=== PATIENT | female | born 1995 | race Caucasian/White ===

== ENCOUNTER 2017-04-20 18:07 | Observation (INO) ==
[2017-04-20] MEDS ORDERED: Ondansetron 4 MG/2 ML VIAL IVP ONE (18:45)
[2017-04-20] MEDS ORDERED: Dicyclomine 20 MG/2 ML AMPUL IM ONE (18:55)
--- NOTE | 2017-04-20 18:59 | Emergency Department Note ---
Disposition Clinical Impression: Appendicitis Qualifiers: Appendicitis type: acute appendicitis Acute appendicitis type: unspecified acute appendicitis type Qualified Code(s): K35.80 - Unspecified acute appendicitis Disposition: Admitted As Inpatient Condition: Fair Referrals: Holly Champion CNP [Primary Care Provider] - Forms: ED Satisfaction Letter, Work/School Release Time of Disposition: 20:27 General Adult HPI - General Chief complaint: ED Abdominal Pain Stated complaint: ABD Pain Time Seen by Provider: 04/20/17 18:24 Source: patient Limitations: no limitations Nursing Notes Reviewed: Yes Vital Signs Reviewed: Yes - History of Present Illness HPI Narrative: Patient is a 21-year-old female with past medical history of PCOS and cholecystectomy presenting with complaint of diffuse abdominal pain that started at noon todPatient states that her pain came on gradually and has worsened since that time. She describes the pain as cramping and points to her epigastric region as the origin of the pain and points down to her bilateral suprapubic region as where the pain hurts most now. She denies any fevers, chills, vomiting, chest pain, shortness breath, dysuria, vaginal bleeding or discharge, diarrhea, melena or recent sick contact. Patient states pain feels similar to the pain she had when she had a cholecystectomy. Patient states her last menstrual period was 4 weeks ago which this is normal for her she is not currently in menstruating. She states she is sexually active with one partner and she does not use protection. She denies any concerns for STI's. Pain Scale: 8 - Related Data Home Medications Medication Instructions Recorded Confirmed metFORMIN [Glucophage] 500 mg PO BIDWM 07/17/16 04/20/17 Allergies Allergy/AdvReac Type Severity Reaction Status Date / Time No Known Allergies Allergy Verified 04/20/17 18:18 All systems ED: reviewed and negative except as stated. Constitutional: Denies: fever, chills ENT ED: Denies: ear pain, throat pain, congestion Cardiovascular: Denies: chest pain Respiratory: Denies: cough, dyspnea, wheezes Gastrointestinal: Reports: abdominal pain, nausea. Denies: vomiting, diarrhea, constipation, hematemesis, melena, hematochezia Genitourinary: Denies: urgency, dysuria, frequency, hematuria, discharge, abnormal menses, genital lesions Musculoskeletal: Reports: back pain (Bilateral flank pain) Integumentary: Denies: rash Neurological: Denies: headache, weakness, numbness Psychiatric: Denies: anxiety, depression Past Medical History - Past Medical History Medical history: Reports: GERD Psychiatric history: Reports: no psych history PRODUCTION MATERIAL COORDINATOR history: Reports: polycystic ovary syndrome - Social History Smoking Status: Never smoker Smokeless Tobacco Status: No Alcohol use: Reports: none Drug use: Reports: none Physical Exam Patient is in no acute distress at this time she is sitting up in bed speaking in full sentences and her mother is at bedside with her child. - General Limitations: no limitations General appearance: alert, in no apparent distress - Head Head exam: atraumatic, normocephalic, normal inspection - Eye Eye exam: Present: normal appearance, PERRL, EOMI - ENT ENT exam: normal exam, normal oropharynx, mucous membranes moist - Neck Neck exam: Present: normal inspection, full ROM, trachea midline. Absent: tenderness - Chest Chest inspection: Present: normal inspection, symmetric chest wall rise. Absent : tenderness - Respiratory Respiratory exam: Present: normal lung sounds bilaterally. Absent: respiratory distress, wheezes, stridor - Cardiovascular Cardiovascular exam: Present: regular rate, normal rhythm, normal heart sounds - Abdominal Exam Abdominal exam: Present: tenderness, guarding, normal bowel sounds. Absent: rebound, rigidity Abdominal tenderness: Present: RLQ, epigastrium - Extremities Exam Extremities exam: Present: normal inspection, full ROM, normal capillary refill. Absent: tenderness - Back Exam Back exam: Present: normal inspection, full ROM. Absent: tenderness, CVA tenderness (R), CVA tenderness (L) - Neurological Exam Neurological exam: Present: alert, oriented X3 - Psychiatric Psychiatric exam: Present: normal affect, normal mood - Skin Skin exam: Present: warm, dry, intact, normal color. Absent: rash Course Course Narrative: Patient is a 21-year-old female presents with the chief complaint of abdominal pain that started at noon today. She says the pain is cramping like epigastric pain down into her bilateral suprapubic regions with associated flank pain. States pain has been constant since that time about a 7 out of 10. Nothing improves the pain nothing makes the pain worse. She has associated nausea. She denies any other symptoms. She does admit to being sexually active without protection. Patient's physical exam appreciated right lower quadrant tenderness with guarding no rebound or rigidity. Plan to perform a pelvic exam. Also ordered abdominal labs on the patient also ordered a CT abdomen and pelvis with IV contrast to rule out appendicitis. The patient also be treated for pain with Bentyl and her nausea was Zofran. Patient agrees with this plan. - Reevaluation(s) Reevaluation #1: Patient's CT showed a early acute appendicitis with inflammation at the tip of the appendix. Dr. Arteaga was consulted and he will see the patient in the emergency department.. Time: 20:25 Reevaluation #2: Dr. Vieira at the patient's bedside states the patient is to go to surgery at this time and he will take the patient into his service. Time: 20:25 Vital Signs Temperature 97.9 F 04/20/17 18:15 Pulse Rate 109 04/20/17 18:15 Respiratory Rate 16 04/20/17 18:15 Blood Pressure 134/85 04/20/17 18:15 O2 Sat by Pulse Oximetry 98 04/20/17 18:15 Temperature 97.9 F 04/20/17 18:15 Pulse Rate 109 04/20/17 18:15 Respiratory Rate 16 04/20/17 18:15 Blood Pressure 134/85 04/20/17 18:15 O2 Sat by Pulse Oximetry 98 04/20/17 18:15 Oxygen Delivery Oxygen Delivery Room Air Medical Decision Making - Medical Records Medical records reviewed: Yes I reviewed the patient's medical records. - Lab Data Lab results reviewed: Yes I reviewed the patient's lab results. Result diagrams: 04/20/17 19:08 04/20/17 19:08 Lab Results 04/20/17 04/20/17 04/20/17 Range/Units 18:45 18:45 19:08 WBC 21.2 H (4.3-11.1) K/mcL RBC 4.79 (3.82-4.97) M/mcL Hgb 14.1 (11.5-15.4) g/dL Hct 42.8 (35.3-44.9) % MCV 89.4 (83.0-100.0) fL MCH 29.4 (28.0-33.3) pg MCHC 32.9 (31.6-35.5) g/dL RDW 12.4 (11.5-14.5) % Plt Count 311 (140-400) K/mcL MPV 9.7 (9.4-12.4) fL Immature Gran % 0.5 (0-4) % Seg Neutrophils % 85.7 % Lymphocytes % 8.6 % Monocytes % 5.1 % Eosinophils % 0.0 % Basophils % 0.1 % Neutrophils # 18.1 H (1.6-8.9) K/mcL Lymphocytes # 1.8 (0.6-4.6) K/mcL Monocytes # 1.1 (0.0-1.3) K/mcL Eosinophils # 0.0 (0.0-0.6) K/mcL Basophils # 0.0 (0.0-0.2) K/mcL Sodium (136-145) mEq/L Potassium (3.5-4.5) mEq/L Chloride (98-109) mEq/L Carbon Dioxide (19-29) mEq/L BUN (7-20) mg/dL Creatinine (0.57-1.11) mg/dL Est GFR ( Amer) (> 60) Est GFR (Non-Af Amer) (> 60) BUN/Creatinine Ratio (6-26) Glucose (70-99) mg/dL Calculated Osmolality (280-300) Calcium (8.6-10.8) mg/dL Total Bilirubin (0.2-1.2) mg/dL Direct Bilirubin (0.0-0.5) mg/dL Indirect Bilirubin (0.0-1.2) mg/dL AST (5-34) Units/L ALT (0-55) Units/L Alkaline Phosphatase (38-126) Units/L Serum Total Protein (6.0-8.3) g/dL Albumin (3.5-5.0) g/dL Globulin (2.4-3.5) g/dL Albumin/Globulin Ratio (1.1-2.2) Amylase (25-125) Units/L Lipase (8-78) Units/L Serum , Qual (Negative) Urine Color Yellow (Yellow) Urine Clarity Clear (Clear) Urine pH 6.0 (5.0-8.0) pH Units Ur Specific [place] 1.029 H (1.010-1.025) Urine Protein Negative (Neg-Trace) mg/dL Urine Glucose (UA) Normal (Normal) mg/dL Urine Ketones 15 H (Negative) mg/dL Urine Blood Negative (Negative) Urine Nitrite Negative (Negative) Urine Bilirubin Negative (Negative) Urine Urobilinogen Normal (Normal) mg/dL Ur Leukocyte Esterase Trace H (Negative) Urine Microscopic RBC 0-3 (0-3) per hpf Urine Microscopic WBC 5-15 H (0-3) per hpf Ur Squamous Epith Cells Many H (None-Few) per lpf Urine Bacteria Few (None-Few) per hpf Hyaline Casts None Seen (None-Few) per lpf Ur Culture Indicated? YES A (NO) Urine Test Negative (Negative) 04/20/17 04/20/17 Range/Units 19:08 19:08 WBC (4.3-11.1) K/mcL RBC (3.82-4.97) M/mcL Hgb (11.5-15.4) g/dL Hct (35.3-44.9) % MCV (83.0-100.0) fL MCH (28.0-33.3) pg MCHC (31.6-35.5) g/dL RDW (11.5-14.5) % Plt Count (140-400) K/mcL MPV (9.4-12.4) fL Immature Gran % (0-4) % Seg Neutrophils % % Lymphocytes % % Monocytes % % Eosinophils % % Basophils % % Neutrophils # (1.6-8.9) K/mcL Lymphocytes # (0.6-4.6) K/mcL Monocytes # (0.0-1.3) K/mcL Eosinophils # (0.0-0.6) K/mcL Basophils # (0.0-0.2) K/mcL Sodium 140 (136-145) mEq/L Potassium 3.8 (3.5-4.5) mEq/L Chloride 104 (98-109) mEq/L Carbon Dioxide 25 (19-29) mEq/L BUN 11 (7-20) mg/dL Creatinine 0.81 (0.57-1.11) mg/dL Est GFR ( Amer) > 60 (> 60) Est GFR (Non-Af Amer) > 60 (> 60) BUN/Creatinine Ratio 14 (6-26) Glucose 90 (70-99) mg/dL Calculated Osmolality 289 (280-300) Calcium 9.8 (8.6-10.8) mg/dL Total Bilirubin 0.5 (0.2-1.2) mg/dL Direct Bilirubin 0.2 (0.0-0.5) mg/dL Indirect Bilirubin 0.3 (0.0-1.2) mg/dL AST 21 (5-34) Units/L ALT 37 (0-55) Units/L Alkaline Phosphatase 63 (38-126) Units/L Serum Total Protein 8.1 (6.0-8.3) g/dL Albumin 4.2 (3.5-5.0) g/dL Globulin 3.9 H (2.4-3.5) g/dL Albumin/Globulin Ratio 1.1 (1.1-2.2) Amylase 29 (25-125) Units/L Lipase 19 (8-78) Units/L Serum , Qual Negative (Negative) Urine Color (Yellow) Urine Clarity (Clear) Urine pH (5.0-8.0) pH Units Ur Specific [place] (1.010-1.025) Urine Protein (Neg-Trace) mg/dL Urine Glucose (UA) (Normal) mg/dL Urine Ketones (Negative) mg/dL Urine Blood (Negative) Urine Nitrite (Negative) Urine Bilirubin (Negative) Urine Urobilinogen (Normal) mg/dL Ur Leukocyte Esterase (Negative) Urine Microscopic RBC (0-3) per hpf Urine Microscopic WBC (0-3) per hpf Ur Squamous Epith Cells (None-Few) per lpf Urine Bacteria (None-Few) per hpf Hyaline Casts (None-Few) per lpf Ur Culture Indicated? (NO) Urine Test (Negative) - Radiology Data Radiology results reviewed: Yes I reviewed the patient's radiology results. Abdomen/Pelvis CT 04/20/17 18:48 IMPRESSION: Findings suspicious for early acute appendicitis. Hepatic steatosis. Nodular consolidation in the left lung base. Consider short-term follow-up chest CT to assess for resolution. Findings were discussed with Dr. Stuart At 8:01 pm on 04/20/2017. D/ / Nikolai Petty MD / Nikolai Petty MD Interpreting Provider: Nikolai Petty MD
[2017-04-20 19:12] LABS: Bilirubin,Urine Negative (Negative); Blood,Urine Negative (Negative); Clarity,Urine Clear (Clear); Color,Urine Yellow (Yellow); Glucose,Urine (UA) Normal (Normal); Ketones,Urine 15 mg/dL (Negative); Leukocyte Esterase,Urine Trace (Negative); Nitrite,Urine Negative (Negative); Protein,Urine Negative (Neg-Trace); Specific Gravity,Urine 1.029 (1.010-1.025); Urobilinogen,Urine Normal (Normal)
[2017-04-20 19:14] LABS: Bacteria,Urine Few per hpf (None-Few); Hyaline Casts,Urine None Seen per lpf (None-Few); RBC,Urine 0-3 per hpf (0-3); Squamous Epithelial Cell,Urine Many per lpf (None-Few)
[2017-04-20 19:16] LABS: Basophils % 0.1 %; Hematocrit 42.8 % (35.3-44.9); Hemoglobin 14.1 g/dL (11.5-15.4); Immature Granulocytes % 0.5 % (0-4); Lymphocytes # 1.8 K/mcL (0.6-4.6); Lymphocytes % 8.6 %; Mean Corpuscular HGB Conc 32.9 g/dL (31.6-35.5); Mean Corpuscular Hemoglobin 29.4 pg (28.0-33.3); Mean Corpuscular Volume 89.4 fL (83.0-100.0); Mean Platelet Volume 9.7 fL (9.4-12.4); Monocytes # 1.1 K/mcL (0.0-1.3); Monocytes % 5.1 %; Neutrophils # 18.1 K/mcL (1.6-8.9); Platelet Count 311 K/mcL (140-400); Red Blood Count 4.79 M/mcL (3.82-4.97); Red Cell Distribution Width 12.4 % (11.5-14.5); Segmented Neutrophils % 85.7 %
[2017-04-20 19:32] LABS: Alanine Aminotransferase 37 Units/L (0-55); Albumin 4.2 g/dL (3.5-5.0); Albumin/Globulin Ratio 1.1 (1.1-2.2); Alkaline Phosphatase 63 Units/L (38-126); Amylase 29 Units/L (25-125); Aspartate Amino Transferase 21 Units/L (5-34); BUN/Creatinine Ratio 14 (6-26); Bilirubin,Direct 0.2 mg/dL (0.0-0.5); Bilirubin,Indirect 0.3 mg/dL (0.0-1.2); Bilirubin,Total 0.5 mg/dL (0.2-1.2); Blood Urea Nitrogen 11 mg/dL (7-20); Calcium 9.8 mg/dL (8.6-10.8); Carbon Dioxide 25 mEq/L (19-29); Chloride 104 mEq/L (98-109); Globulin 3.9 g/dL (2.4-3.5); Glucose 90 mg/dL (70-99); Lipase 19 Units/L (8-78); Osmolality,Calculated 289 (280-300); Potassium 3.8 mEq/L (3.5-4.5); Sodium 140 mEq/L (136-145); Total Protein 8.1 g/dL (6.0-8.3); eGFR For African Americans > 60 (> 60); eGFR For Non-African Americans > 60 (> 60)
--- NOTE | 2017-04-20 20:01 | Emergency Department Note ---
START Narrative - START START: I examined this patient and my medical decision-making was reviewed with the Resident Physician. I agree with the documented findings, disposition and treatment plan as described except to the extent set forth below. 21 year old female presens to the ED with complaints of RLQ which radiates into the rest of her adbomen that started about noon today with dificulty tolerating PO and nauseted without vomitting. She has a WBC of 20 and tachycardia of 109, meetings SIRS criteria need to rule out appendicitis. Patient pelvic exam did not display cervisitis or cervial motion tenderness with scant amount of white discharge. Radiologu called to confirm early appendicitis. WE will consult surgery and admit. Merly, IVF started.
[2017-04-20] MEDS ORDERED: Piperacillin/Tazobactam 3.375 GM in D5% in Water (Mini-Bag+) 100 ML IVPB ONE (20:03)
[2017-04-20] MEDS: 0.9 % Sodium Chloride 1,000 ML IVC SCH (20:15)
--- NOTE | 2017-04-20 20:39 | General Surg History&Physical ---
Date of Encounter: 04/20/17 Time of Encounter: 20:20 Assessment and Plan (1) Appendicitis Current Visit: Yes Status: Acute The assessment and plan as outlined above was discussed with the patient and/or family members who expressed understanding and agreement. All questions were answered. The patient has clinical, laboratory, and radiologic features of acute appendicitis plan laparoscopic appendectomy on an emergent basis. Qualifiers: Appendicitis type: acute appendicitis Acute appendicitis type: with localized peritonitis Qualified Code(s): K35.3 - Acute appendicitis with localized peritonitis History of Present Illness Chief complaint: Right lower quadrant abdominal pain HPI: Ms. Lambert is a 21 year old female Is been having abdominal pain since noon today. Pain initially was generalized. This started as a continuous pain centrally the abdomen and localized right lower quadrant. She has pain with motion. She has not no evidence of shakes chills or. She sought evaluation in the emergency department. Initial evaluation was consistent with right lower quadrant pain. CAT scan was obtained that demonstrated acute appendicitis. There is no evidence of periappendiceal abscess or pelvic abscess. I personally reviewed The CAT scan images and interviewed the patient. She is anorexic and has localized right lower quadrant abdominal pain the CAT scan images are consistent with acute appendicitis. Past Med Surg Social Fam HX - Past Medical History Medical history: GERD Psychiatric history: no psych history - Social History Smoking Status: Never smoker Smokeless Tobacco Status: No Alcohol use: none Drug use: none Medications and Allergies metFORMIN [Glucophage] 500 mg PO BIDWM 07/17/16 [History] 3 Allergy/AdvReac Type Severity Reaction Status Date / Time No Known Allergies Allergy Verified 04/20/17 18:18 Review of Systems All systems PM: A 10-system review of systems was performed and is negative for pertinent findings except as documented above in the HPI. General Surgery Exam Initial Vital Signs Temp Pulse Resp BP Pulse Ox 97.9 F 109 16 134/85 98 04/20/17 18:15 04/20/17 18:15 04/20/17 18:15 04/20/17 18:15 04/20/17 18:15 - General physical appearance well developed, well nourished, no distress - Respiratory normal expansion, normal respiratory effort, clear to percussion, clear to auscultation - Cardiovascular Cardiovascular exam: Present: RRR, 15, 16 - Abdomen Abdomen general surgery: Present: bowel sounds present, soft, guarding, rebound Abdominal Tenderness: Present: RLQ - Neurologic Present: CN 2-12 grossly intact, normal coordination, normal sensation - Psychiatric Psychiatric general surgery: Present: appropriate, oriented to person, oriented to place, oriented to time, speech is normal, memory intact Results - Labs 04/20/17 19:08 04/20/17 19:08 Abnormal lab results WBC 21.2 K/mcL (4.3-11.1) H 04/20/17 19:08 Neutrophils # 18.1 K/mcL (1.6-8.9) H 04/20/17 19:08 Globulin 3.9 g/dL (2.4-3.5) H 04/20/17 19:08 Ur Specific [place] 1.029 (1.010-1.025) H 04/20/17 18:45 Urine Ketones 15 mg/dL (Negative) H 04/20/17 18:45 Ur Leukocyte Esterase Trace (Negative) H 04/20/17 18:45 Urine Microscopic WBC 5-15 per hpf (0-3) H 04/20/17 18:45 Ur Squamous Epith Cells Many per lpf (None-Few) H 04/20/17 18:45 Ur Culture Indicated? YES (NO) A 04/20/17 18:45 All other labs normal. - Imaging CT scan - abdomen: image reviewed (I personally reviewed the images. The findings are consistent with acute appendicitis with no periappendiceal abscess or pelvic abscess)
[2017-04-20 20:41] LABS: INR 1.1; Prothrombin Time 11.7 Seconds (9.4-12.1)
[2017-04-20 20:44] LABS: Gardnerella DNA Not Detected (Not Detect); Trichomonas DNA Not Detected (Not Detect)
[2017-04-20 20:44] LABS: Activated Partial Thrombo Time 29.1 Seconds (26.0-36.0)
[2017-04-20 20:45] LABS: Candida DNA Not Detected (Not Detect)
[2017-04-20] MEDS ORDERED: *HR* FentaNYL (PF) 100 MCG/2 ML VIAL ONE (20:45)
[2017-04-20] MEDS ORDERED: *HR* Midazolam HCl 2 MG/2 ML VIAL ONE (20:45)
[2017-04-20] MEDS ORDERED: Dexamethasone 4 MG/ML VIAL ONE (20:46)
[2017-04-20] MEDS ORDERED: *HR* Propofol 200 MG/20 ML VIAL IVP ONE (20:46)
[2017-04-20] MEDS ORDERED: Ondansetron 4 MG/2 ML VIAL ONE (20:46)
[2017-04-20] MEDS ORDERED: *HR* Rocuronium Bromide 50 MG/5 ML VIAL ONE (20:46)
[2017-04-20] MEDS ORDERED: *HR* Succinylcholine 200 MG/10 ML VIAL IVP ONE (20:46)
[2017-04-20] MEDS ORDERED: Lidocaine -MPF 2% 2 ML VIAL ONE (20:46)
[2017-04-20] MEDS ORDERED: CefOXitin 1,000 MG VIAL ONE (20:50)
--- NOTE | 2017-04-20 20:54 | Anesthesia Evaluation PreOp ---
Date of Encounter: 04/20/17 Time of Encounter: 20:52 - Past History Planned Operation: Laparoscopic Appendectomy Cardiac History: Denies any Significant Hx Pulmonary History: Denies Any Significant HX AIR POLLUTION COMPLIANCE INSPECTOR History: Denies Any Significant HX Other Medical History: GERD, Other (obesity BMI=42.4) Anesthesia History: No Prior Anesthetic Complications, Past Anesthesia Test: Negative (04/20/2017) Alcohol Use: none Drug use: none Medications and Allergies metFORMIN [Glucophage] 500 mg PO BIDWM 07/17/16 [History] 3 Allergy/AdvReac Type Severity Reaction Status Date / Time No Known Allergies Allergy Verified 04/20/17 18:18 - Meds/Allergy Pre-op Review Medications Reviewed: Yes Allergies Reviewed: Yes Beta Blockers on Current Med List: No Anesthesia Results - Labs 04/20/17 19:08 04/20/17 19:08 Anesthesia Exam Vital Signs/O2 Sat, Most Current Temp Pulse Resp BP Pulse Ox 97.9 F 109 16 134/85 98 04/20/17 18:15 04/20/17 18:15 04/20/17 18:15 04/20/17 18:15 04/20/17 18:15 Height: 5'2''/1.57 m Weight: 232 lbs/105 kg NPO (# of Hours): 8 Pain Scale: 6 (abdomen) Pain Scale Used: Numeric (1 - 10) - HEENT Pupil (Motor): EOMI Mallampati: II Teeth: Normal Oral Opening: Greater than 3 - AIR POLLUTION COMPLIANCE INSPECTOR LOC: Oriented AIR POLLUTION COMPLIANCE INSPECTOR Motor: Normal RUE, Normal LUE, Normal RLE, Normal LLE, Normal Face AIR POLLUTION COMPLIANCE INSPECTOR Sensory: Normal: RUE, LUE, RLE, LLE, Face - Cardiac Rhythm: Regular Murmur: None - Pulmonary Breath Sounds: bilateral Clear Respiratory Effort: Symmetrical Anesthesia Assess/Plan ASA Score: 3 Modified Nemo Scale for Level of Consciousness: Cooperative, oriented, and tranquil Anesthetic Plan: General Monitoring Plan: Standard Monitors Recovery Plan: PACU
[2017-04-20] MEDS ORDERED: *HR* Morphine 2 MG/ML SYRINGE IVP PRN (20:55)
[2017-04-20] MEDS ORDERED: CefOXitin 2,000 MG VIAL ONE (21:06)
[2017-04-20 21:18] LABS: Phosphorous 3.4 mg/dL (2.3-4.7)
[2017-04-20] MEDS ORDERED: Neostigmine Methylsulfate 3 MG/3 ML SYRINGE ONE (21:41)
[2017-04-20] MEDS ORDERED: *HR* Morphine 10 MG/ML VIAL ONE (21:54)
--- NOTE | 2017-04-20 22:06 | Operative Note ---
Date of procedure: 04/20/17 Pre-op diagnosis: Acute appendicitis Post-op diagnosis: same Procedure: Laparoscopic appendectomy Anesthesia: ELENA Surgeon: Fabricio Arteaga Estimated blood loss (cc): 20 Specimen: Appendix Condition: stable Disposition: PACU Procedure in Detail: After informed consent the patient was taken to the major operating suite and placed in the supine position and given adequate general anesthetic. Timeout was taken. The patient is identified. I made a vertical midline incision below the umbilicus. I dissected down to the level of fascia. 2 traction stitches were placed in the fascia. I entered the abdominal cavity visually and placed a Ponce trocar. The abdomen was insufflated to 15 mmHg pressure CO2. I placed a 5 mm trocar in the suprapubic area and a 12 mm trocar in the right upper quadrant. I identified the appendix and mobilize the appendix from its lateral peritoneal attachments using electrocautery. Once this was done the appendix was isolated on the mesial appendix area and then opened a window between the mesoappendix and the base the cecum. The base the cecum was divided with a gastrointestinal staple load on the laparoscopic stapling device. The appendix was then isolated on the mesial appendix. The mesoappendix was divided with a vascular load of rabia using the laparoscopic stapling device. There was one area of continuing bleeding from the staple line. This was controlled with a single 10 mm clip. The abdomen and pelvis were irrigated with copious amounts of antibiotic containing solution. There is no evidence of bleeding. All staple lines were intact. All trochars were removed. The rash was closed with 0 Vicryl and the skin was closed with 2-0 Vicryl and 4-0 Vicryl.
[2017-04-20] MEDS: *HR* HYDROmorphone (PF) 1 MG/ML SYRINGE IVP PRN ×4 (22:14→22:34)
[2017-04-20] MEDS ORDERED: *HR* HYDROmorphone (PF) 1 MG/ML SYRINGE ONE (22:14)
[2017-04-20] MEDS ORDERED: *HR* Midazolam HCl 2 MG/2 ML VIAL IVP ONE (22:22)
[2017-04-20 22:24] LABS: Magnesium 1.9 mg/dL (1.6-2.6)
--- NOTE | 2017-04-20 22:58 | Anesthesia Evaluation Post Op ---
Date of Encounter: 04/20/17 Time of Encounter: 22:57 - Vital Signs Vital Signs: Vital Signs/O2 Sat, Most Current Temp Pulse Resp BP Pulse Ox 98.7 F 96 12 111/71 96 04/20/17 22:41 04/20/17 22:51 04/20/17 22:51 04/20/17 22:51 04/20/17 22:51 - Lungs Lungs: Clear Ascult./Percussion - Airway Airway: Non-obstructed - Cardiovascular Regular Rate - Mental Status Mental Status: Alert & Oriented, Answers Appropriately - Pain Pain Scale: 3 Pain Scale used: Numeric (1 - 10) - Nausea Vomiting Nausea Vomiting: Not Present - Hydration Hydration: NPO, Has not voided - Discharge PostOp Status: Transfer Patient to floor
[2017-04-20] MEDS ORDERED: *HR* HYDROmorphone (PF) 1 MG/ML SYRINGE IVP PRN (23:00)
[2017-04-20] MEDS ORDERED: Ondansetron 4 MG/2 ML VIAL IVP PRN (23:00)
[2017-04-21] MEDS: 0.9 % Sodium Chloride 1,000 ML IVC SCH ×3 (00:03→14:05)
[2017-04-21] MEDS: cefOXitin 2,000 MG in Water for inj. (sterile) 10 ML IVP SCH ×2 (00:04→08:56)
[2017-04-21] MEDS: *HR* OxyCODONE/APAP 5/325 TABLET PO PRN ×2 (03:08→08:59)
[2017-04-21 04:50] LABS: Basophils % 0.1 %; Hematocrit 39.2 % (35.3-44.9); Hemoglobin 12.7 g/dL (11.5-15.4); Immature Granulocytes % 0.4 % (0-4); Lymphocytes # 0.7 K/mcL (0.6-4.6); Lymphocytes % 4.4 %; Mean Corpuscular HGB Conc 32.4 g/dL (31.6-35.5); Mean Corpuscular Hemoglobin 29.1 pg (28.0-33.3); Mean Corpuscular Volume 89.9 fL (83.0-100.0); Mean Platelet Volume 10.1 fL (9.4-12.4); Monocytes # 0.2 K/mcL (0.0-1.3); Monocytes % 1.1 %; Neutrophils # 15.1 K/mcL (1.6-8.9); Platelet Count 310 K/mcL (140-400); Red Blood Count 4.36 M/mcL (3.82-4.97); Red Cell Distribution Width 12.2 % (11.5-14.5)
[2017-04-21 10:29] VITALS: BP 106/64
--- NOTE | 2017-04-21 14:19 | Discharge Summary ---
<Elizabeth Cagle - Last Filed: 04/21/17 14:16> Date of Encounter: 04/21/17 Time of Encounter: 14:16 - Discharge Diagnosis (1) Appendicitis Priority: Primary Status: Resolved Qualifiers: Appendicitis type: acute appendicitis Acute appendicitis type: with localized peritonitis Qualified Code(s): K35.3 - Acute appendicitis with localized peritonitis - Discharge Medications Prescriptions: OxyCODONE/APAP 5/325 [Percocet 5/325 MG] 1 each PO Q6HR PRN #28 tablet PRN Reason: Pain (1-5) Docusate Sodium [Colace] 100 mg PO BID PRN #30 capsule PRN Reason: Constipation Ibuprofen 800 mg PO Q8H #30 tablet Home Medications: metFORMIN [Glucophage] 500 mg PO BIDWM 07/17/16 [History] Docusate Sodium [Colace] 100 mg PO BID PRN #30 capsule 04/21/17 [Rx] Ibuprofen 800 mg PO Q8H #30 tablet 04/21/17 [Rx] OxyCODONE/APAP 5/325 [Percocet 5/325 MG] 1 each PO Q6HR PRN #28 tablet 04/21/17 [Rx] Allergies/Adverse Reactions: 3 Allergy/AdvReac Type Severity Reaction Status Date / Time No Known Allergies Allergy Verified 04/20/17 18:18 General Surgery Exam Initial Vital Signs Temp Pulse Resp BP Pulse Ox 97.9 F 109 16 134/85 98 04/20/17 18:15 04/20/17 18:15 04/20/17 18:15 04/20/17 18:15 04/20/17 18:15 - General physical appearance well developed, well nourished, no distress - Eyes normal ocular movement - ENT normal nares, normal mucosa, atraumatic, normocephalic - Neck trachea midline, no venous distension - Respiratory normal expansion, normal respiratory effort, clear to auscultation - Cardiovascular Cardiovascular exam: Present: RRR, 15, 16 - Abdomen Abdomen general surgery: Present: bowel sounds present, soft, tender (Expected postoperative) Hernia: Present: none - Incision Incision: Present: clean and dry, intact - Integumentary Integumentary general surgery: Present: warm and dry, no abnormal pigmentation - Neurologic Present: CN 2-12 grossly intact, normal coordination, normal sensation - Musculoskeletal Present: normal gait, normal posture - Psychiatric Psychiatric general surgery: Present: A&Ox3, appropriate, oriented to person, oriented to place, oriented to time, speech is normal, memory intact Date of admission: 04/20/17 20:33 Primary care physician: Holly Champion CNP Discharging clinician: Fabricio Cagle) Anticipated date of discharge: 04/21/17 - Patient Status Disposition: Home, Self-Care Condition: Fair Functional capacity at discharge: independent ambulation Overall status at discharge: patient is progressing back to baseline - Discharge Instructions Instructions: Laparoscopic Appendectomy (DC) Follow Up With: Holly Champion CNP [Primary Care Provider] - 04/28/17 3:00 pm Veronica Braswell CNP [Advanced Practice Nurse] - 05/05/17 10:00 am Additional Instructions: General Surgical Discharge Instructions 1. No pushing, pulling, or lifting greater than 15 lbs for two weeks. 2. You may shower beginning today, but no tub baths, soaking, or swimming for 2 weeks. 3. You may resume driving when you are off narcotics and are safe to react in a car. 4. Take narcotics as directed. Do not take more narcotics then directed and do not share your narcotics with any other person. Do not drink alcohol while on narcotics. 5. Take stool softeners (Colace) or a water based laxative (Miralax) while taking narcotics. You may hold for loose stools. 6. Report any fevers greater than 100.5F, increase abdominal discomfort, drainage that looks like pus, increased redness or pain at the surgical site, or any vomiting. 7. Report any pain in the calves, shortness of breath, or rapid heartbeat. 8. Follow-up in the office as directed. 9. If you were prescribed antibiotics, do not stop them without talking to your provider. - Diet and Activity Activity: increase activity as tolerated Diet: advance to your usual diet - Hospital Course Hospital course: Ms. Lambert is a 21 year old female who presented on 04/20/17 for complaints of abdominal pain since noon that day. She stated that the pain was initially generalized and then localized to the right lower quadrant, was associated with activity and without fever. A CT was a obtained which demonstrated acute appendicitis, without evidence of process. She was taken to the operating room where she underwent an uncomplicated laparoscopic appendectomy. There was a small area of bleeding along the staple line which was controlled with a single 10 mm clip. Her hospital course has been uncomplicated. She is tolerating a regular diet without nausea or vomiting. She is ambulating and voiding without difficulty. States or discomfort is controlled with the current medication regimen and her white blood cell count is down trending. Her vital signs are stable and she is afebrile. We will begin discharge planning to home with a follow-up in the office in 2 weeks. - Time Spent with Patient Total time spent providing and/or coordinating discharge services: Less than 30 minutes Labs on day of discharge: Labs from last 24 hours 04/21/17 04/20/17 04:24 20:39 WBC 16.1 H RBC 4.36 Hgb 12.7 Hct 39.2 MCV 89.9 MCH 29.1 MCHC 32.4 RDW 12.2 Plt Count 310 MPV 10.1 Immature Gran % 0.4 Seg Neutrophils % 94.0 Lymphocytes % 4.4 Monocytes % 1.1 Eosinophils % 0.0 Basophils % 0.1 Neutrophils # 15.1 H Lymphocytes # 0.7 Monocytes # 0.2 Eosinophils # 0.0 Basophils # 0.0 Lactic Acid 1.4 <Chandler,Fabricio T - Last Filed: 04/22/17 13:49> Date of Encounter: 04/21/17 - Discharge Diagnosis (1) Appendicitis Status: Resolved Qualifiers: Appendicitis type: acute appendicitis Acute appendicitis type: with localized peritonitis Qualified Code(s): K35.3 - Acute appendicitis with localized peritonitis General Surgery Exam Initial Vital Signs Temp Pulse Resp BP Pulse Ox 97.9 F 109 16 134/85 98 04/20/17 18:15 04/20/17 18:15 04/20/17 18:15 04/20/17 18:15 04/20/17 18:15 Date of admission: 04/20/17 20:33 Primary care physician: Holly Champion CNP - Hospital Course Hospital course: Ms. Lambert is a 21 year old female - Time Spent with Patient Total time spent providing and/or coordinating discharge services: Labs on day of discharge: Preliminary micro results at discharge 04/20/17 20:39 Blood Culture - Preliminary Peripheral Venipuncture No growth. 04/20/17 20:39 Blood Culture - Preliminary Peripheral Venipuncture No growth. - Attending Attestation I have personally performed a face to face evaluation on this patient. I have reviewed and agree with the care plan. History and Exam by me shows: The patient was seen and evaluated on morning rounds. She has done well after laparoscopic colectomy. She should be ready for discharge later today. A follow-up will be arranged for next week. I will be glad to see her as an outpatient. Fabricio Arteaga MD FACS
== END 2017-04-21 16:48 | disposition home or self-care (01) ==
LOC: 3BNU 18:07 → EMEROO 18:07 → 3BNU 20:52
PROVIDERS: ADMIT Surgery; ATTEND Surgery